=== PATIENT | female | born 1985 | race Caucasian/White ===

== ENCOUNTER 2025-01-27 08:35 | Outpatient (CLI) | payer OTHER | END 2025-01-27 08:58 | disposition home or self-care (01) | LOC: SONOGRAMA 08:35 | DX: N96 Recurrent pregnancy loss (principal); N83.9 Noninflammatory disorder of ovary, fallopian tube and broad ligament, unspecified ==

== ENCOUNTER → 2025-10-03 10:05 | Outpatient (CLI) | payer OTHER | END | disposition home or self-care (01) | LOC: PRENATAL 10:05 | PROVIDERS: ATTEND Obstetrics & Gynecology Maternal & Fetal Medicine | DX: O44.02 Complete placenta previa NOS or without hemorrhage, second trimester (principal); O09.522 Supervision of elderly multigravida, second trimester; O26.22 Pregnancy care for patient with recurrent pregnancy loss, second trimester; O26.872 Cervical shortening, second trimester; O34.12 Maternal care for benign tumor of corpus uteri, second trimester; Z3A.20 20 weeks gestation of pregnancy ==

== ENCOUNTER 2025-10-29 09:27 | Outpatient (CLI) | payer OTHER | END 2025-10-29 09:28 | disposition home or self-care (01) | LOC: PRENATAL 09:27 | PROVIDERS: ATTEND Obstetrics & Gynecology Maternal & Fetal Medicine | DX: O26.842 Uterine size-date discrepancy, second trimester (principal); O09.522 Supervision of elderly multigravida, second trimester; O26.22 Pregnancy care for patient with recurrent pregnancy loss, second trimester; O26.872 Cervical shortening, second trimester; O34.12 Maternal care for benign tumor of corpus uteri, second trimester; Z3A.23 23 weeks gestation of pregnancy ==